=== PATIENT | male | born 1945 | race African-American/Black ===

== ENCOUNTER 2016-07-03 19:05 | Observation (INO) | payer OTHER ==
--- NOTE | ~2016-07-03 | CO ---
Unit #: [id number] #: [id number] Patient: KAVYA ARREAGA [id number] [address] [place], [place] [address] [id number] I MR#: [id number] NAME: KAVYA ARREAGA. ROOM: 566 Age: 71 Sex: M Admission Date: 07/04/2016 : 1945 Attending Physician: Gale Yang M.D. Primary Care Physician: Kezia Mello M.D. CONSULTATION REPORT CHIEF COMPLAINT We were asked to see for syncopal episode. HISTORY OF PRESENT ILLNESS Mr. Arreaga is a 71-year-old male, who was at [employer] sitting at a table when he became unresponsive. He reports that his family said he was out for about 20 seconds. He denies any prodrome, although it was reported he felt lightheaded, he denied it. He states his son said that his eyes rolled in the back of his head, and he just slumped over for about 20 seconds, and he was incontinent of urine. The patient states he only remembers waking up to his son, checking him asking him if he was okay, and that he lost control of his bladder, and then he became very diaphoretic when he was awakened. He does have a history of a syncopal episode in the setting of a GI bleed and anemia. The patient denied any chest pain. States he has never had a coronary catheterization. Positive for hypertension. Positive for tobacco. Negative for arteriosclerotic heart disease. Negative for diabetes. Negative for family history of premature coronary artery disease. Denies shortness of air. PAST MEDICAL HISTORY 1. Syncope in the past secondary to GI bleed and anemia. 2. COPD. 3. Hypertension. 4. Benign prostatic hypertrophy. 5. 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 PAST SURGICAL HISTORY 1. Hemorrhoidectomy. 2. Ablation of gastric and duodenal AVMs. HOME MEDICATIONS 1. Flomax 0.8 mg daily. 2. Norvasc 10 mg daily. ALLERGIES No known allergies. FAMILY HISTORY No premature arteriosclerotic heart disease. SOCIAL HISTORY The patient still works part-time in maintenance. Lives with the company of his . He smokes about a half a pack or less per day since the age Unit #: [id number] #: [id number] Patient: KAVYA ARREAGA of 15. He drinks 1 beer to 2 at most nightly. Rare social alcohol. REVIEW OF SYSTEMS Negative for fevers. Negative for chills. No weight gain. No weight loss. No difficulty swallowing. No chest pain. No chest pressure. No shortness of air. No dyspnea on exertion. No Crohn colitis. No diarrhea. No constipation. No hematuria. Denies melena. No difficulty walking. No lower extremity edema. No seizures. PHYSICAL EXAMINATION GENERAL: Well-developed and well-nourished pleasant male, who is a good historian, in bed, in no acute distress. VITAL SIGNS: Blood pressure lying 125/62, heart rate 63. Blood pressure sitting 100/58, heart rate 84. Blood pressure standing 98/51, heart rate of 102. Temperature 98.2. Normal sinus rhythm to sinus tach/atrial tach. Height 5 feet and 11 inches. Weight 59.2 kg. BMI 18. HEENT: Normocephalic and atraumatic. No xanthelasma. Pupils are equal, round, and reactive to light. Extraocular movements are intact. No jugular venous distention. No elevated CVP. LUNGS: Clear to auscultation anteriorly and posteriorly bilaterally. HEART: S1 and S2. No S3 or S4. No murmurs, rubs, or gallops. No lift. PMI nondisplaced. ABDOMEN: Positive bowel sounds. Soft, nontender, and nondistended. EXTREMITIES: No clubbing, cyanosis, or edema. 2+ pulses bilaterally. No scoliosis. SKIN: No rash. No wounds. DIAGNOSTIC STUDIES IMAGING STUDIES: Chest x-ray shows no acute findings. Ultrasound carotid Doppler bilaterally shows no evidence of hemodynamically significant luminal narrowing in the bilateral cervical internal carotid arteries. Minimal atherosclerotic plaque in the carotid bulbs. Antegrade flow bilaterally in the vertebral arteries. LABORATORY RESULTS: Sodium 137, potassium 4.3, chloride 107, CO2 of 25, BUN 16, creatinine 0.9, glucose 89. AST 30, ALT 33, alkaline phosphatase 94. Troponin less than 0.03. PT 10.3, INR 1.0, PTT 23.3. Point of care troponin is less than 0.05 and less than 0.05. Hemoglobin 9.6, hematocrit 31.7, white blood cell count 7.6, and platelet count 343. Urinalysis negative. ASSESSMENT AND PLAN 1. Syncope with orthostasis. We will continue to check orthostatics q.shift. 2. History of hypertension, on Norvasc, currently has been discontinued. 3. Normal sinus rhythm with ventricular rate in the 60s with episodes of nonsustained atrial tachycardia/sinus tachycardia with rates up to 150. 2D echo shows EF of 50%. Mild septal hypokinesis. Moderately dilated right ventricle. Lhte-lu-lbzrksmw aortic regurgitation. Mild mitral regurgitation. Mild tricuspid regurgitation. No evidence of pericardial effusion. We will obtain a 24-hour Holter. We will continue orthostatics every shift. Recommended a 30-day event monitor at the time of discharge. We will continue to follow. Dictated by... Justina CerdaPSheryl for Chiara Posadas M.D. Unit #: [id number] #: [id number] Patient: KAVYA ARREAGA Laurie COLVIN/dallin TD: 07/06/2016 08:43 JOB #: [id number] CONSULTATION REPORT Page 1 of 1 X X CONSULTATION REPORT
--- NOTE | ~2016-07-03 | HP ---
Unit #: [id number] #: [id number] Patient: KAVYA ARREAGA [id number] [address] [address] [id number] I MR#: [id number] NAME: KAVYA ARREAGA. ROOM: 566 Age: 71 Sex: M Admission Date: 07/04/2016 : 1945 Attending Physician: Dionna Novoa M.D. Primary Care Physician: Kezia Mello M.D. HISTORY AND PHYSICAL CHIEF COMPLAINT Transient episode of syncope while seated. HISTORY This pleasant, 71-year-old male with chronic anemia, hypertension, COPD, and BPH is admitted for syncope. Patient states that he is usually active without symptoms. He was seated at [facility] yesterday and was witnessed to have about a 20-second episode of syncope. The patient states that he felt a little lightheaded before the episode. When he came to, he had lost continence of his urine and was diaphoretic and, also, a little lightheaded. Denies chest pain or palpitations with the above. He does have chronic anemia, but denies any melena. Maybe he noted a drop of blood in the stool yesterday. He was brought to this emergency department last evening with stable vital signs although mildly bradycardic to 56. In the ER, he was bolused with a liter of saline. His hemoglobin is 9, which is fairly stable for this patient. I did do a rectal examination, which was heme-negative. PAST MEDICAL HISTORY 1. Syncope in the past secondary to GI bleed and anemia. 2. COPD. 3. Hypertension. 4. BPH. 5. Iron deficiency anemia, admitted. Gastric and duodenal AVMs along with AVMs in the colon were noted and were ablated. 6. Hemorrhoidectomy. ALLERGIES None. HOME MEDICATIONS Triamterene and Flomax, unknown doses. FAMILY HISTORY CAD. SOCIAL HISTORY The patient lives with his . He smokes about 3/4 pack per day of tobacco and is trying to stop smoking. Drinks a beer or at the most two beers a day. REVIEW OF SYSTEMS Notable for a syncopal episode and lightheadedness yesterday, as dictated Unit #: [id number] #: [id number] Patient: KAVYA ARREAGA above; COPD; hypertension; BPH; tobacco use; anemia; AVMs; and hemorrhoidectomy. All other systems were reviewed and otherwise negative. PHYSICAL EXAMINATION GENERAL APPEARANCE: Very pleasant, thin, 71-year-old male currently in no acute distress. VITAL SIGNS: Temperature 96.5, pulse 56, respirations 18, blood pressure 131/66, and O2 saturation is 97% on room air. HEENT: Eyes: PERRLA. Extraocular muscles are intact. Pharynx is benign. NECK: Supple without adenopathy or thyromegaly. CHEST: Clear. CARDIAC: Normal S1 and S2 without S3, S4, or murmur. ABDOMEN: Bowels sounds are present. No hepatosplenomegaly, tenderness, or masses. RECTAL: Enlarged prostate. Heme-negative brown stool. EXTREMITIES: Without edema. Pedal pulses are present, although somewhat diminished. NEUROLOGIC: Patient is awake, alert, and oriented. Cranial nerves are intact. Equal strength throughout. DIAGNOSTIC STUDIES LABORATORY: Hematocrit is 29, which is fairly stable for this patient; normal white count; MCV is 70; and normal platelet count. Coags normal. SMA-12 is normal, except for an alk phos at 94. Cardiac markers are negative. Urinalysis is negative. IMAGING: Chest x-ray: No acute disease. CARDIOVASCULAR: EKG shows a sinus bradycardia, rate 58, and some LVH. ASSESSMENT 1. Brief episode of syncope while seated at [facility] [employer]. I am unsure if this is related to the heat versus arrhythmia. 2. Chronic microcytic anemia with heme-negative stool. 3. Hypertension. 4. COPD and ongoing tobacco use. 5. BPH. PLANS 1. Holter monitor, echocardiogram, check orthostatics and carotid Doppler. 2. Recheck labs in the morning. 3. Obtain B12, ferritin level, and TSH. 4. Further workup and consultants depending on above. Dictated by Alexandra Ngo/emily TD: 07/04/2016 05:13 JOB #: [id number] Unit #: [id number] #: [id number] Patient: KAVYA ARREAGA HISTORY AND PHYSICAL Page 1 of 1 X Dionna Novoa MD X HISTORY AND PHYSICAL
--- NOTE | ~2016-07-03 | EKG ---
PATIENT: KAVYA ARREAGA UNIT #: [id number] Ventricular Rate: 60 BPM Atrial Rate: 60 BPM P-R Interval: 150 ms QRS Duration: 86 ms Q-T Interval: 394 ms QTC Calculation(Bezet): 394 ms P [place]: 80 degrees Calculated R [place]: 49 degrees Calculated T [place]: 71 degrees Diagnosis Line: Normal sinus rhythm Diagnosis Line: Possible Left atrial enlargement Diagnosis Line: Borderline ECG Diagnosis Line: When compared with ECG of 03-JUL-2016 20:14, Diagnosis Line: No significant change was found Diagnosis Line: Confirmed by CORNELIO CHINCHILLA MD ([id number]) on Diagnosis Line: 07/05/2016 4:32:24 PM INTERPRETING MD: RENÉE MEJIA
--- NOTE | ~2016-07-03 | A ---
[facility] Nutrition Therapy DATE: 07/05/16 Patient: KAVYA ARREAGA Physician: SHERLYN Address: [address] [place] [address] Room/Bed: [address] [place] [address], Zip: [place] [address] Admit Date: 07/04/16 Date of : [birth year] Height: 5 11 Weight: 130 59.2 NUTRITIONAL ASSESSMENT: REASON: LOW BMI (18.1) PATIENT ADMITTED FOR SYNCOPE AND ANEMIA PMH: CHRONIC ANEMIA, HTN, COPD, IRON DEF. ANEMIA, GI BLEED Anthropometrics: HT: 71", WT: 130#, BMI: 18.1 Labs: 07/05/16- ALL NUTRITIONAL LABS WNL Meds: NACL, LAXATIVE I/O & Bowel function: 2240/3675 Skin Integrity: INTACT Estimated Nutrition Needs: INCREASED 2' TO LOW BMI Assessment: CHART REVIEWED, EVENTS NOTED. PATIENT IS A 71 Y/O MALE ADMITTED FOR SYNCOPE AND ANEMIA. DURING VISIT PATIENT STATED A GOOD APPETITE, NO RECENT WEIGHT LOSS, AND THAT HE HAS BEEN THE SAME SIZE HIS WHOLE LIFE. WEIGHT HX PER [employer] SHOWS A WEIGHT OF 135# 6 YEARS AGO. PATIENT DENIED ANY N/V/D/C AND STATED HE HAS NO CURRENT GI ISSUES R/T HIS HX OF GI BLEED. PATIENT IS ON A HEART HEALTHY DIET AND DID NOT HAVE ANY NUTRITION EDUCATION QUESTIONS ATT. RECOMMEND ENSURE BID FOR ADDED NUTRIENT SUPPORT. Dx: INADEQUATE NUTRIENT INTAKE R/T CURRENT CONDITION AEB LOW BMI Intervention: HEART HEALTHY DIET, SUPPLEMENTATION, MEDS/FLUIDS PER MD, RD ASSESSMENT Monitoring, Evaluation and Goals: 1. ADEQUATE PO INTAKES >50% OF MEALS 2. PREVENT, CORRECT MICRO/MACRO NUTRIENT DEFICIENCIES MONITOR: WEIGHTS, LABS, PO/FLUID INTAKES Recommendations: 1. CONTINUE HEART HEALTHY DIET TOLERATED. RECOMMEND ENSURE BID WITH MEALS TO PROMOTE ADEQUATE KCAL AND PROTEIN INTAKES. 2. ENCOURAGE ADEQUATE KCAL AND PROTEIN INTAKES [facility] Nutrition Therapy DATE: 07/05/16 Patient: KAVYA ARREAGA Physician: SHERLYN Address: [address] [place] [address] Room/Bed: [address] [place] [address], Zip: [place] [address] Admit Date: 07/04/16 Date of : [birth year] Height: 5 11 Weight: [address] TO F/U PER PROTOCOL AND PRN R/T PATIENT MILDLY COMPROMISED Respectfully, EMILIE BECKFORD RD, LD [employer] [facility] cc: client file
--- NOTE | ~2016-07-03 | US37 ---
[facility] A Service of [facility] & [facility] RADIOLOGY TEXT RESULTS PATIENT: KAVYA ARREAGA LOCATION: [facility] 566-01 : [birth year] UNIT #: [id number] AGE: [address]: Gale Yang MD SEX: M ORDER DR: [id number] [facility] [address] [facility]. [place], [place] [address] [id number] I MR#: [id number] Acc #: [id number] NAME: KAVYA ARREAGA : 1945 SEX: M STUDY DATE/TIME: 07/04/2016 9:13 UNIT: [facility] ROOM: [facility] STUDY DESCRIPTION: US Carotid W/Doppler Bilateral Attending Physician: Gale Yang M.D. Ordering Physician: Dionna Novoa M.D. Primary Care Physician: Kezia Mello M.D. MEDICAL IMAGING REPORT This report is preliminary unless electronic signature is present EXAM Ultrasound carotid Doppler bilateral. HISTORY Fainting, passing out x2 days. Dizziness x2 days. High blood pressure. TECHNIQUE Real time ultrasonography of the cervical, carotid, and vertebral arteries performed. Bangura-scale, color Doppler, and Doppler pulse-wave interrogation utilized. Carotid flow evaluated using methodology based upon NASCET criteria. FINDINGS Note made of atherosclerotic plaque in the bilateral carotid bulbs. Peak systolic velocities on the right are as follows: Common carotid artery 0.81 m/sec, internal carotid artery 0.86 m/sec in mid segment of artery, external carotid artery 0.67 m/sec, antegrade flow in right vertebral artery. Right IC/CC ratio 1.06. The right-sided Doppler pulse waveforms are normal. On the left, peak systolic velocities as follows: Common carotid artery 0.74 m/sec, internal carotid artery 0.96 m/sec in distal segment of the artery, external carotid artery 0.56 m/sec. There is antegrade flow in the left vertebral artery. The left IC/CC ratio is 1.3. Left-sided Doppler pulse waveforms within normal limits. IMPRESSION 1. There is no evidence of hemodynamically significant luminal narrowing in the bilateral cervical internal carotid arteries using methodology based upon NASCET criteria. 2. Minimal atherosclerotic plaque bilateral carotid bulbs. 3. Antegrade flow bilateral vertebral arteries. [facility]. [facility] A Service of [facility] RADIOLOGY TEXT RESULTS PATIENT: KAVYA ARREAGA LOCATION: [facility] 566-01 : [birth year] UNIT #: [id number] AGE: [address]: Gale Yang MD SEX: M ORDER DR: Dictated by... Troy Lowe M.D. THIS IS AN ELECTRONICALLY VERIFIED REPORT Troy Lowe M.D. at 07/04/2016 7:48 PM MARIAELENA/kristie TD: 07/04/2016 11:47 JOB #: [id number] MEDICAL IMAGING REPORT Page 1 of 1 COPY
--- NOTE | ~2016-07-03 | DS ---
Unit #: [id number] #: [id number] Patient: KAVYA ARREAGA [id number] [address] [address] [id number] I MR#: [id number] NAME: KAVYA ARREAGA. ROOM: 566 Age: 71 Sex: M Admission Date: 07/04/2016 : 1945 Discharge Date: Attending Physician: Gale Yang M.D. Primary Care Physician: Kezia Mello M.D. DISCHARGE SUMMARY DISCHARGE DIAGNOSES 1. Syncope secondary to postural hypotension. 2. Sinus tachycardia. 3. Hypertension. 4. Leqn-pd-lgqjndlu aortic regurgitation. 5. Chronic iron deficiency anemia. 6. Rule out sick sinus syndrome. Patient will have event monitor and follow cardiology as an outpatient. 7. Benign prostatic hypertrophy. 8. Chronic obstructive pulmonary disease. CONSULTATIONS Dr. Oliveros. PROCEDURES None. DIAGNOSTIC TESTING IMAGING: MRI of the brain - No recent ischemia. Ultrasound of the carotids showed no evidence of stenosis. LAB DATA: Creatinine 0.9. Hemoglobin 9.6. Vitamin B12 is 446. Ferritin 6. TSH 0.68. CARDIOVASCULAR: Echocardiogram shows ejection fraction 55%. ALLERGIES None. DISCHARGE MEDICATIONS 1. Flomax 0.8 p.o. daily. 2. ProAmatine 5 mg t.i.d. HOSPITALIZATION COURSE A 71 year old admitted because of syncope. Syncope. Likely secondary to postural hypotension. Patient was started on ProAmatine. Patient received IV fluids. MRI of the head is negative. Patient was seen by cardiology. They recommend event monitor, and he will follow cardiology as an outpatient. He needs outpatient stress test, also. Hypertension. Well controlled. Unit #: [id number] #: [id number] Patient: KAVYA ARREAGA Chronic iron deficiency anemia. Follow with PCP. BPH. Stable. DISCHARGE PLAN 1. Discharge home. 2. Follow with family physician in 1 week's time. Dictated by... Alexandra Medina/julian TD: 07/07/2016 14:00 JOB #: [id number] DISCHARGE SUMMARY Page 1 of 1 X Gale Yang MD DISCHARGE SUMMARY
--- NOTE | ~2016-07-03 | CR72 ---
[facility] A Service of [facility] & [facility] RADIOLOGY TEXT RESULTS PATIENT: KAVYA ARREAGA LOCATION: [facility] [address] : [birth year] UNIT #: [id number] AGE: [address]: Gale Yang MD SEX: M ORDER DR: [id number] [facility] [address] [facility]. [place], [place] [address] [id number] MR#: [id number] Acc #: [id number] NAME: KAVYA ARREAGA : 1945 SEX: M STUDY DATE/TIME: 07/03/2016 20:36 UNIT: [facility] ROOM: STUDY DESCRIPTION: CR Chest Single View Portable Attending Physician: Juice Johnson D.O. Ordering Physician: Juice Johnson D.O. Primary Care Physician: Kezia Mello M.D. MEDICAL IMAGING REPORT This report is preliminary unless electronic signature is present EXAM Portable chest. HISTORY Dizzy, shortness of air for 1 week. Syncope. FINDINGS Cardiac size and pulmonary vascularity are normal. Hyperinflation of both lungs. Calcified mediastinal and bilateral hilar nodes and small calcified granulomas in both lungs. No airspace infiltrates or effusions. Mild right upper thoracic curve and minimal left lower thoracic curve. IMPRESSION No acute findings. No active disease. Dictated by... Ritesh Pimentel M.D. THIS IS AN ELECTRONICALLY VERIFIED REPORT Ritesh Pimentel M.D. at 07/04/2016 2:03 PM HANH/kunal TD: 07/03/2016 22:00 JOB #: [id number] MEDICAL IMAGING REPORT Page 1 of 1 COPY
--- NOTE | ~2016-07-03 | MR18 ---
[facility] A Service of [facility] & [facility] RADIOLOGY TEXT RESULTS PATIENT: KAVYA ARREAGA LOCATION: [facility] 566-01 : [birth year] UNIT #: [id number] AGE: [address]: Gale Yang MD SEX: M ORDER DR: [id number] [facility] [address] [facility]. [place], [place] [address] [id number] I MR#: [id number] Acc #: [id number] NAME: KAVYA ARREAGA : 1945 SEX: M STUDY DATE/TIME: 07/05/2016 15:10 UNIT: [facility] ROOM: [facility] STUDY DESCRIPTION: MR Brain Wo Contrast Attending Physician: Gale Yang M.D. Ordering Physician: Erica Dykes M.D. Primary Care Physician: Kezia Mello M.D. MRI CENTER REPORT This report is preliminary unless electronic signature is present. EXAM MRI brain without contrast. HISTORY Syncope 2 days ago. FINDINGS MRI brain without contrast demonstrates no recent ischemia or infarct. No restricted diffusion. Mild chronic ischemic changes in the periventricular and subcortical white matter bilaterally and mild generalized cerebral cortical atrophy. No midline shift or ventricular dilatation or extraaxial fluid collection. IMPRESSION 1. No recent ischemia or infarct. 2. Mild chronic ischemic changes in the deep white matter bilaterally. Dictated by... Ritesh Pimentel M.D. THIS IS AN ELECTRONICALLY VERIFIED REPORT Ritesh Pimentel M.D. at 07/05/2016 10:36 PM HANH/kunal TD: 07/05/2016 16:59 JOB #: [id number] MRI CENTER REPORT Page 1 of 1 COPY
--- NOTE | ~2016-07-03 | EKG ---
PATIENT: KAVYA ARREAGA UNIT #: [id number] Ventricular Rate: 58 BPM Atrial Rate: 58 BPM P-R Interval: 164 ms QRS Duration: 88 ms Q-T Interval: 416 ms QTC Calculation(Bezet): 408 ms P [place]: 56 degrees Calculated R [place]: 24 degrees Calculated T [place]: 28 degrees Diagnosis Line: Sinus bradycardia Diagnosis Line: Minimal voltage criteria for LVH, may be normal Diagnosis Line: variant Diagnosis Line: Borderline ECG Diagnosis Line: When compared with ECG of 31-JUL-2010 13:54, Diagnosis Line: No significant change was found Diagnosis Line: Confirmed by DEMETRIUS PHELPS MD ([id number]) on Diagnosis Line: 07/04/2016 8:54:52 AM INTERPRETING MD: LENIN MEJIA
--- NOTE | ~2016-07-03 | HM ---
Unit #: [id number] #: [id number] Patient: KAVYA ARREAGA [id number] [address] [address] [id number] I MR#: [id number] NAME: KAVYA ARREAGA. : 1945 SEX: M STUDY DATE/TIME: 07/04/2016 UNIT: [facility] ROOM: 566 STUDY DESCRIPTION: Attending Physician: Gale Yang M.D. Primary Care Physician: Kezia Mello M.D. CARDIOLOGY REPORT EXAM 24-hour Holter monitor. DATE APPLIED 07/04/2016 DATE SCANNED 07/10/2016 READ BY Chiara Posadas M.D. ORDERED BY Dionna Novoa M.D. REASON FOR STUDY Syncope FINDINGS 1. Basic rhythm is normal sinus rhythm. Total beats 93,578. Average heart rate 65 per minute. Heart rate varies from 49 per minute at 9:09 a.m. to 141 per minute at 0056 a.m. 2. Three isolated PVCs noted. 3. Forty isolated PACs noted. 4. No high-grade AV blocks noted. 5. No diary with the symptoms available. Dictated by... Alexandra Rios/hannah TD: 07/15/2016 16:15 JOB #: [id number] Unit #: [id number] #: [id number] Patient: KAVYA ARREAGA CARDIOLOGY REPORT Page 1 of 1 X Chiara Posadas MD HOLTER MONITOR REPORT
[~2016-07-03 19:05] MED LIST: FERROUS SULFATE PO; FLOMAX0.4 M1 PO; NO MEDICATIONS
[2016-07-03 20:34] LABS: BASOPHIL# 0.1 X10e3 (0-0.3); EOSINOPHIL# 0.1 X10e3 (0-0.7); EOSINOPHIL% 1.3 % (0.0-7.0); LYMPHOCYTE# 1.2 X10e3 (1.0-3.5); LYMPHOCYTE% 13.2 % (17.0-45.0); MEAN CELL VOLUME 70.1 FL (83-96); MEAN CORPUSCULAR HEMOGLOBIN 21.6 PG (28-34); MEAN CORPUSCULAR HGB CONC 30.9 g/dL (30-36); MEAN PLATELET VOLUME 6.9 FL (6.5-11.5); MONOCYTE# 0.7 X10e3 (0-1.0); MONOCYTE% 7.7 % (3.0-12.0); NEUTROPHIL# 6.9 X10e3 (1.5-7.1); NEUTROPHIL% 76.8 % (40-75); PLATELET COUNT 339 X10e3 (140-420); RED BLOOD COUNT 4.14 X10e (3.90-5.60); RED CELL DISTRIBUTION WIDTH 17.7 % (11.0-15.5)
[2016-07-03 20:38] LABS: DIFF IND NO
[2016-07-03 20:47] LABS: PARTIAL THROMBOPLASTIN TIME 23.3 SECONDS (23.5-31.3); PROTHROMBIN TIME (PATIENT) 10.3 SECONDS (9.6-11.5)
[2016-07-03 20:55] LABS: ALBUMIN SERUM 3.8 g/dL (3.5-5.0); ALKALINE PHOSPHATASE 94 U/L (32-92); ALT (SGPT) 33 U/L (10-40); AST (SGOT) 30 U/L (10-42); BILIRUBIN,TOTAL 0.4 mg/dL (0.2-2.0); BLOOD UREA NITROGEN 18 mg/dL (9-23); CALCIUM SERUM 9.6 mg/dL (8.4-10.2); CARBON DIOXIDE 25 mmol/L (22-31); CHLORIDE 103 mmol/L (100-111); GLOM FILT RATE Estimated 87.4 mL/min (>60); GLUCOSE FASTING 101 mg/dL (70-110); POTASSIUM 4.1 mmol/L (3.5-5.1); PROTEIN TOTAL SERUM 7.4 g/dL (6.0-8.3); SODIUM 135 mmol/L (135-145)
[2016-07-03 20:56] LABS: BILIRUBIN, DIRECT <0.1 mg/dL (0.0-0.2); BILIRUBIN,INDIRECT 0.3 mg/dL (0.0-0.9)
[2016-07-03 22:37] LABS: URINE SOURCE CLEAN CATCH
[2016-07-03 22:46] LABS: URINE APPEARANCE CLEAR; URINE BILIRUBIN NEG (NEG); URINE BLOOD NEG (NEG); URINE COLOR YELLOW; URINE GLUCOSE NEG (NEG); URINE KETONE NEG (NEG); URINE LEUKOCYTE ESTERASE NEG (NEG); URINE NITRATE NEG (NEG); URINE PROTEIN NEG (NEG); URINE SPECIFIC GRAVITY 1.016 (1.003-1.035)
[2016-07-03 22:55] LABS: CULTURE INDICATED? NO
[2016-07-03 23:42] LABS: POC - CKMB 2.4 ng/mL (0.0-7.9); POC - TROPONIN <0.05 ng/mL (<=0.05)
[2016-07-04 00:04] LABS: POC - CKMB 2.2 ng/mL (0.0-7.9); POC - TROPONIN <0.05 ng/mL (<=0.05)
[2016-07-04] MEDS ORDERED: NORVASC10 MG PO (05:53)
[2016-07-04 11:25] LABS: BASOPHIL# 0.1 X10e3 (0-0.3); BASOPHIL% 1.9 % (0-2.5); EOSINOPHIL# 0.2 X10e3 (0-0.7); EOSINOPHIL% 3.4 % (0.0-7.0); HEMATOCRIT 30.3 % (38.0-50.0); HEMOGLOBIN 9.2 gm/dL (13.0-16.0); LYMPHOCYTE# 1.4 X10e3 (1.0-3.5); LYMPHOCYTE% 23.5 % (17.0-45.0); MEAN CELL VOLUME 71.2 FL (83-96); MEAN CORPUSCULAR HEMOGLOBIN 21.6 PG (28-34); MEAN CORPUSCULAR HGB CONC 30.3 g/dL (30-36); MEAN PLATELET VOLUME 7.7 FL (6.5-11.5); MONOCYTE# 0.4 X10e3 (0-1.0); MONOCYTE% 6.3 % (3.0-12.0); NEUTROPHIL# 3.9 X10e3 (1.5-7.1); NEUTROPHIL% 64.9 % (40-75); PLATELET COUNT 333 X10e3 (140-420); RED BLOOD COUNT 4.26 X10e (3.90-5.60); RED CELL DISTRIBUTION WIDTH 17.6 % (11.0-15.5)
[2016-07-04 11:26] LABS: DIFF IND NO
[2016-07-04 11:51] LABS: BUN/CREATININE RATIO 18.75; CALCIUM SERUM 9.6 mg/dL (8.4-10.2); CREATININE SERUM 0.8 mg/dL (0.6-1.4); GLOM FILT RATE Estimated 104.2 mL/min (>60); POTASSIUM 3.8 mmol/L (3.5-5.1)
[2016-07-04 12:10] LABS: FERRITIN 6 ng/mL (24-336)
[2016-07-04 12:24] LABS: %MB 2.3 % (0.0-4.0); MB 3.1 ng/ml
[2016-07-05 06:50] LABS: HEMATOCRIT 31.7 % (38.0-50.0); HEMOGLOBIN 9.6 gm/dL (13.0-16.0); MEAN CORPUSCULAR HEMOGLOBIN 21.3 PG (28-34); MEAN CORPUSCULAR HGB CONC 30.4 g/dL (30-36); MEAN PLATELET VOLUME 7.4 FL (6.5-11.5); RED BLOOD COUNT 4.53 X10e (3.90-5.60); WHITE BLOOD COUNT 7.6 X10e3 (4.0-10.5)
[2016-07-05 07:09] LABS: BUN/CREATININE RATIO 17.77; CALCIUM SERUM 10.1 mg/dL (8.4-10.2); CREATININE SERUM 0.9 mg/dL (0.6-1.4); GLOM FILT RATE Estimated 99.2 mL/min (>60); POTASSIUM 4.3 mmol/L (3.5-5.1)
[2016-07-07] MEDS ORDERED: PROAMATINE2.5 MG PO (14:18)
== END 2016-07-07 14:44 | disposition home or self-care (01) ==
LOC: CED 19:05 → CEDOF 07-04 02:31 → C5C 07-04 02:35 → CEDOF 07-04 04:01 → C5C 07-04 08:17
PROVIDERS: Emergency Medicine; Internal Medicine
DX: I95.1 Orthostatic hypotension (principal); I51.7 Cardiomegaly; I08.3 Combined rheumatic disorders of mitral, aortic and tricuspid valves; G93.89 Other specified disorders of brain; I49.3 Ventricular premature depolarization; I49.1 Atrial premature depolarization; I65.23 Occlusion and stenosis of bilateral carotid arteries; R53.83 Other fatigue; I10 Essential (primary) hypertension; J44.9 Chronic obstructive pulmonary disease, unspecified; R00.0 Tachycardia, unspecified; N40.0 Benign prostatic hyperplasia without lower urinary tract symptoms; D50.8 Other iron deficiency anemias; F17.200 Nicotine dependence, unspecified, uncomplicated; Z79.899 Other long term (current) drug therapy; Z82.49 Family history of ischemic heart disease and other diseases of the circulatory system; Z98.890 Other specified postprocedural states
CPT/HCPCS: 36415; 70551; 71010; 80048; 80076; 81003; 82550; 82553; 82607; 82728; 82947; 83735; 84443; 84484; 85025; 85027; 85610; 85730; 86850; 86900; 86901; 93005; 93225; 93226; 93306; 93880; 96360; 96374; 97116; 97161; 99285; 99406; G0378; G8978-GP; G8979-GP; G8980-GP; J2916

== ENCOUNTER → 2016-07-16 | Outpatient (CLI) | payer OTHER ==
[~2016-07-16] MED LIST changes: +NORVASC10 MG PO; +PROAMATINE2.5 MG PO
--- NOTE | ~2016-07-16 | ST ---
Unit #: [id number] #: [id number] Patient: KAVYA ARREAGA [id number] [address] [address] [id number] O MR#: [id number] NAME: KAVYA ARREAGA. : 1945 SEX: M STUDY DATE/TIME: 07/16/2016 UNIT: [facility] ROOM: STUDY DESCRIPTION: Exercise stress test Attending Physician: Adriane Oliveros M.D. Referring Physician: Adriane Oliveros M.D. Primary Care Physician: Kezia Mello M.D. CARDIOLOGY REPORT PROCEDURE PERFORMED Exercise Cardiolite stress test. PROCEDURE BASELINE EKG: Normal sinus rhythm with ventricular rate 60 beats per minute, left ventricular hypertrophy, peaked T waves in inferior and lateral leads, slow R wave progression, left atrial abnormality, early repolarization. The patient walked on the treadmill for 5 minutes utilizing the Esteban protocol, achieving a workload of 4.6 METS. He achieved 110% of the maximum target heart rate at 164 beats per minute with a maximum blood pressure response of 159/88 mmHg. EKG during the test was equivocal to baseline. No acute ischemic changes. The patient had no complaints of chest pain, palpitations or dizziness. IMPRESSION 1. Functional class 3 with a workload of 4.6 METS. 2. Patient walked for 5 minutes achieving 110% of maximum target heart rate at 164 beats per minute with a maximum blood pressure response of 159/88 mmHg. 3. The patient had no complaints of chest pain, palpitations or dizziness. 4. Patient had a fairly poor exercise tolerance. Had to hold in stage 1 for the whole 5 minute test due to shortness of breath, fatigue and maximum target heart rate has been achieved. 5. Cardiolite was injected at maximum target heart rate. Radionuclide test pending. Please correlate with nuclear images. 1. Dictated by... Pio MelaraRDwightN. for Polo Cameron M.D. TETO/julian TD: 07/16/2016 10:27 JOB #: [id number] Unit #: [id number] #: [id number] Patient: KAVYA ARREAGA CARDIOLOGY REPORT Page 1 of 1 X Dawna Painting APRN CARDIOLOGY REPORT
--- NOTE | ~2016-07-16 | TH ---
Unit #: [id number] #: [id number] Patient: GUIDO ARREAGA [id number] [address] [place], [place] [address] [id number] O MR#: [id number] NAME: GUIDO ARREAGA. : 1945 SEX: M STUDY DATE/TIME: 07/17/2016 UNIT: [facility] ROOM: STUDY DESCRIPTION: Attending Physician: Adriane Oliveros M.D. Referring Physician: Adriane Oliveros M.D. Primary Care Physician: Kezia Mello M.D. CARDIOLOGY REPORT EXAM Stress nuclear study. ECG is done separately. SUMMARY Patient exercised on a Esteban protocol to maximal effort. Full ECG results are reportedly separately, but briefly, there were no acute ST changes with stress. Patient completed 5 minutes of exercise. Heart rate increased from 64 to 164 (110%), and blood pressure increased from 140/81 to 159/88. Technetium 99 Cardiolite 11.28 and 34.8 mCi was injected at rest and stress, respectively. Appropriate views were obtained. FINDINGS Planar images show no significant patient motion at rest or stress. There is mild LV and RV enlargement. There is no significant lung uptake. Summed stress score is 4 and summed difference score is 3. Gated perfusion wall motion analysis demonstrates end-diastolic volume 120 mL and ejection fraction 47% with mild inferior wall hypokinesis. Perfusion images demonstrate normal perfusion at rest with diaphragmatic artifact and intestinal artifact. With stress, there is diaphragmatic artifact, but at the very base of the inferior wall there appears to be some mild decrease in perfusion compared with rest. Otherwise, perfusion is normal and equivalent. It should be noted that the RV size appears mildly enlarged. IMPRESSION 1. No infarction. 2. Very small amount of very mild ischemia at the basal inferior wall. This is frequently an area which can be associated with false positive changes, especially with a normal ECG. 3. Low-normal ejection fraction to mildly reduced ejection fraction. 4. Mildly enlarged left ventricle. 5. Consider echocardiography to evaluate left ventricle if clinically appropriate. 1. Dictated by... Alexandra Flower Unit #: [id number] #: [id number] Patient: GUIDO ARREAGA TD: 07/17/2016 16:44 JOB #: [id number] CARDIOLOGY REPORT Page 1 of 1 X Guido Tang MD CARDIOLOGY REPORT
== END | disposition home or self-care (01) ==
LOC: CNUC 07:32
DX: R55 Syncope and collapse (principal); R06.02 Shortness of breath; I51.7 Cardiomegaly; I99.8 Other disorder of circulatory system
CPT/HCPCS: 78452; 93017; A9500

== ENCOUNTER → 2016-08-04 | Outpatient (CLI) | payer OTHER ==
--- NOTE | ~2016-08-04 | US5 ---
[facility] A Service of [facility] RADIOLOGY TEXT RESULTS PATIENT: KAVYA ARREAGA LOCATION: [facility] : 45 UNIT #: [id number] AGE: [address]: MONIQUE RUFF MD SEX: M ORDER DR: [id number] [facility] [address] [place], [place] [address] [id number] O MR#: [id number] Acc #: [id number] NAME: KAVYA ARREAGA : 1945 SEX: M STUDY DATE/TIME: 08/04/2016 10:23 UNIT: [facility] ROOM: STUDY DESCRIPTION: US Abdominal Complete Attending Physician: Monique Ruff M.D. Referring Physician: Monique Ruff M.D. Ordering Physician: Monique Ruff M.D. Primary Care Physician: Monique Ruff M.D. MEDICAL IMAGING REPORT This report is preliminary unless electronic signature is present EXAM Abdominal ultrasound, complete, 08/04/2016. HISTORY Abnormally elevated liver enzymes on 07/28/2016. FINDINGS The liver is homogeneous in echotexture and demonstrates no cystic or solid mass lesions. The intra and extrahepatic bile ducts are not dilated. The gallbladder is normal with no evidence of cholelithiasis, wall thickening, or pericholecystic fluid. The common duct measures 5 mm. The pancreas and spleen are normal. The spleen measures 8.3 cm in greatest diameter. The visualized portions of the abdominal aorta and inferior vena cava are within normal limits. The kidneys are normal bilaterally. IMPRESSION Negative abdominal ultrasound. Dictated by... Julian Robertson M.D. THIS IS AN ELECTRONICALLY VERIFIED REPORT Julian Robertson M.D. at 08/05/2016 8:12 AM NICOLE/kristie TD: 08/04/2016 14:36 JOB #: [id number] MEDICAL IMAGING REPORT Page 1 of 1 COPY
== END | disposition home or self-care (01) ==
LOC: CGUS 10:00
DX: R94.5 Abnormal results of liver function studies (principal)
CPT/HCPCS: 76700